=== PATIENT | male | born 1995 | race African-American/Black ===

== ENCOUNTER 2021-07-25 21:33 | Emergency (ER) | payer OTHER ==
[~2021-07-25] VITALS: Ht 177.8 cm; Wt 79.4 kg
[2021-07-25 23:00] VITALS: BP 130/70
--- NOTE | 2021-07-25 23:00 | NUR ---
Patient discharged to home in stable condition. Written and verbal after care instructions given. Patient verbalizes understanding of instruction.
== END 2021-07-25 23:00 | disposition home or self-care (01) ==
LOC: ER 21:39
DX: F12.90 Cannabis use, unspecified, uncomplicated (principal); F41.9 Anxiety disorder, unspecified; Z59.0 Homelessness